=== PATIENT | female | born 1955 | race Caucasian/White ===

== ENCOUNTER → 2023-09-20 08:30 | Outpatient (REF) | payer MEDICARE, OTHER, SELFPAY | LOC: HWWDC 08:30 | PROVIDERS: ATTENDING PHYSICIAN Internal Medicine; FAMILY PHYSICIAN Obstetrics & Gynecology; REFERRING PHYSICIAN Surgery | DX: Z12.31 Encounter for screening mammogram for malignant neoplasm of breast (principal) | CPT/HCPCS: 77063; 77067 ==

== ENCOUNTER → 2023-10-27 06:38 | Day surgery (SDC) | payer MEDICARE, OTHER, SELFPAY | LOC: GI 06:38 | PROVIDERS: ATTENDING PHYSICIAN Internal Medicine | DX: Z12.11 Encounter for screening for malignant neoplasm of colon (principal); K64.8 Other hemorrhoids; K57.30 Diverticulosis of large intestine without perforation or abscess without bleeding; K64.4 Residual hemorrhoidal skin tags; D12.2 Benign neoplasm of ascending colon | CPT/HCPCS: 45385; 45380; 88305 ==

== ENCOUNTER → 2024-04-03 07:29 | Outpatient (REF) | payer MEDICARE, OTHER, SELFPAY ==
[2024-04-03 09:15] LABS: ALT (SGPT) 20 U/L (0-35); AST (SGOT) 25 U/L (14-36); Albumin 4.1 g/dl (3.5-5.0); Alkaline Phosphatase 67 U/L (38-126); Blood Urea Nitrogen 23 mg/dl (7-17); Calcium 9.9 mg/dl (8.4-10.2); Carbon Dioxide 28 mmol/L (22-30); Chloride 107 mmol/L (98-107); Creatine Phosphokinase 102 U/L (30-135); Glucose 89 mg/dl (70-99); HDL Cholesterol 64 mg/dl; LDL Cholesterol, Calculated 173 mg/dl; Sodium 139 mmol/L (135-145); Total Bilirubin 0.6 mg/dl (0.2-1.3); Total Cholesterol 260 mg/dl (50-199); Total Protein 6.8 g/dl (6.3-8.2); Triglyceride 117 mg/dl (10-149); Very Low Density Lipoprotein 23 mg/dl (0-30); eGFR > 60.00
[2024-04-04 20:20] LABS: Lipoprotein a (Lp a) 73 mg/dL (<=29)
[2024-04-04 20:26] LABS: Apolipoprotein B 138 mg/dL (60-117)
== END ==
LOC: REG 07:29
PROVIDERS: ATTENDING PHYSICIAN Internal Medicine
DX: R93.1 Abnormal findings on diagnostic imaging of heart and coronary circulation (principal); E78.5 Hyperlipidemia, unspecified
CPT/HCPCS: 36415; 80053; 80061; 82172; 82550; 83695; 93005

== ENCOUNTER → 2024-04-09 10:01 | Outpatient (REF) | payer MEDICARE, OTHER, SELFPAY | LOC: RCS 10:01 | PROVIDERS: ATTENDING PHYSICIAN Internal Medicine | DX: R93.1 Abnormal findings on diagnostic imaging of heart and coronary circulation (principal) | CPT/HCPCS: 78452; 93017; A9500 ==

== ENCOUNTER → 2024-07-23 07:27 | Outpatient (REF) | payer MEDICARE, OTHER, SELFPAY ==
[2024-07-23 08:34] LABS: ALT (SGPT) 31 U/L (0-35); AST (SGOT) 30 U/L (14-36); Albumin 4.2 g/dl (3.5-5.0); Alkaline Phosphatase 66 U/L (38-126); Blood Urea Nitrogen 22 mg/dl (7-17); Calcium 9.7 mg/dl (8.4-10.2); Carbon Dioxide 32 mmol/L (22-30); Chloride 104 mmol/L (98-107); Creatine Phosphokinase 124 U/L (30-135); Glucose 89 mg/dl (70-99); HDL Cholesterol 74 mg/dl; LDL Cholesterol, Calculated 86 mg/dl; Potassium 4.3 mmol/L (3.5-5.1); Sodium 142 mmol/L (135-145); Total Bilirubin 0.5 mg/dl (0.2-1.3); Total Cholesterol 180 mg/dl (50-199); Total Protein 6.9 g/dl (6.3-8.2); Triglyceride 101 mg/dl (10-149); Very Low Density Lipoprotein 20 mg/dl (0-30); eGFR > 60.00
== END ==
LOC: REG 07:27
PROVIDERS: ATTENDING PHYSICIAN Internal Medicine
DX: E78.2 Mixed hyperlipidemia (principal)
CPT/HCPCS: 36415; 80053; 80061; 82550

== ENCOUNTER → 2024-09-25 08:03 | Outpatient (REF) | payer MEDICARE, OTHER, SELFPAY ==
[2024-09-25 09:41] LABS: ALT (SGPT) 45 U/L (0-35); AST (SGOT) 35 U/L (14-36); Albumin 4.5 g/dl (3.5-5.0); Alkaline Phosphatase 84 U/L (38-126); Blood Urea Nitrogen 22 mg/dl (7-17); Carbon Dioxide 29 mmol/L (22-30); Chloride 103 mmol/L (98-107); Glucose 94 mg/dl (70-99); Potassium 4.8 mmol/L (3.5-5.1); Sodium 141 mmol/L (135-145); Total Bilirubin 0.8 mg/dl (0.2-1.3); eGFR > 60.00
== END ==
LOC: REG 08:03
PROVIDERS: ATTENDING PHYSICIAN Internal Medicine Rheumatology; FAMILY PHYSICIAN Internal Medicine
DX: M81.0 Age-related osteoporosis without current pathological fracture (principal)
CPT/HCPCS: 36415; 80053

== ENCOUNTER → 2024-10-17 07:33 | Outpatient (REF) | payer MEDICARE, OTHER, SELFPAY | LOC: HWWDC 07:33 | PROVIDERS: ATTENDING PHYSICIAN Obstetrics & Gynecology; FAMILY PHYSICIAN Internal Medicine | DX: Z12.31 Encounter for screening mammogram for malignant neoplasm of breast (principal); N83.202 Unspecified ovarian cyst, left side | CPT/HCPCS: 76830; 76856; 77063; 77067 ==

== ENCOUNTER → 2024-10-22 07:31 | Outpatient (REF) | payer MEDICARE, OTHER, SELFPAY | LOC: HWRAD 07:31 | PROVIDERS: ATTENDING PHYSICIAN Internal Medicine Rheumatology; FAMILY PHYSICIAN Internal Medicine | DX: M81.0 Age-related osteoporosis without current pathological fracture (principal) | CPT/HCPCS: 77080 ==

== ENCOUNTER → 2025-02-18 07:10 | Outpatient (REF) | payer MEDICARE, OTHER, SELFPAY ==
[2025-02-18 10:00] LABS: ALT (SGPT) 36 U/L (0-35); AST (SGOT) 29 U/L (14-36); HDL Cholesterol 66 mg/dl; LDL Cholesterol, Calculated 87 mg/dl; Total Cholesterol 169 mg/dl (50-199); Triglyceride 83 mg/dl (10-149); Very Low Density Lipoprotein 16 mg/dl (0-30)
== END ==
LOC: REG 07:10
PROVIDERS: ATTENDING PHYSICIAN Internal Medicine Cardiovascular Disease; FAMILY PHYSICIAN Internal Medicine
DX: R93.1 Abnormal findings on diagnostic imaging of heart and coronary circulation (principal); E78.2 Mixed hyperlipidemia
CPT/HCPCS: 80061; 84450; 84460

== ENCOUNTER 2025-08-11 23:33 | Emergency (ER) | payer MEDICARE, OTHER, SELFPAY ==
[2025-08-11 23:34] VITALS: BP 148/72
--- NOTE | 2025-08-12 03:08 | ED.GENMED ---
History of Present Illness
<Umair Morris, DO - Last Filed: 08/12/25 03:12>
General
Chief Complaint: Musculo-Skeletal Complaint
Source: patient and spouse
Exam Limitations: none
Nursing documentation reviewed up to this point in time: agreed with
History of Present Illness
History of Present Illness:
Note:
CHIEF COMPLAINT(S)
Pain after a fall.
HISTORY OF PRESENT ILLNESS
The patient is a 70-year-old female who reports experiencing pain following a fall yesterday. He was descending steps at a [facility] presentation when she slipped on an icy section that had a railing only at the top and bottom of the
staircase. The fall occurred as she was coming down the steps. She did not specify exactly where the pain is located or any additional symptoms experienced since the fall.
Disposition:
SUMMARY OF ENCOUNTER
The patient is a 70-year-old female presenting to the emergency department after a fall resulting from slipping on ice, which occurred 24 hours prior. She reports pain in her right rib area, particularly exacerbated by inspiration and movement, with
minimal pain at rest. The patient denied any fever, chills, nausea, or vomiting. Ibuprofen is an option for her pain management, and plans for discharge with an incentive spirometer were discussed.
DIAGNOSIS
Rib contusion due to fall (ICD-10: S22.41XA)
PATIENT EDUCATION AND COUNSELING
The patient was educated on the use of an incentive spirometer to aid in breathing exercises and prevent complications like pneumonia. She was advised to use ibuprofen as needed for pain management, paying attention to directions regarding dosages.
The importance of monitoring for any new or worsening symptoms was emphasized, including fever, increased pain, or difficulty breathing, which would necessitate medical attention.
FOLLOW-UP INSTRUCTIONS
The patient was advised to follow up with her primary care physician for reassessment and further management. Additionally, she was instructed to schedule an appointment if symptoms persist or worsen.
MEDICATION RECONCILIATION
Ibuprofen for pain management as required.
MEDICAL DECISION MAKING
- Number and Complexity of Problems Addressed: Acute presentation involving rib contusion post-fall, with associated pain management needs.
- Data
Category 1: Radiology or imaging not mentioned explicitly, assumed to be clinically unnecessary due to clear physical examination findings and patient symptom presentation.
Category 2: Input primarily obtained from the patients report.
- Risk: Prescription drug management for pain considered, with ibuprofen as a non-prescription option. Consideration of further imaging or interventions deferred given stable initial assessment findings and symptomatology. Potential risk addressed
through follow-up and at-home management strategies.
Phy Exam
<Umair Morris DO - Last Filed: 08/12/25 03:12>
General Physical Exam
General Presentation: well appearing and no apparent distress
General Skin: warm and dry
General Habitus: normal
General Mental: alert
General Hydration: appears well hydrated
ENT Exam
ENT Exam: EOMI, pharynx normal, neck supple and normocephalic
Eye Exam
Eye Exam: PERRL, cornea clear and conjunctiva normal
Cardiovascular Exam
Cardiovascular Exam: regular rate/rhythm, no edema, no murmur and normal peripheral pulses
Pulmonary Exam
Pulmonary Exam: lungs clear, no respiratory distress, no rales, no crackles, no rhonchi, no stridor, no wheezing, no cough and other (Tenderness to palpation on the right rib 4 or 5)
Gastrointestinal Exam
Gastrointestinal Exam: normal bowel sounds, non tender, soft, no organomegaly, no pulsatile mass and non distended
Neurological Exam
Neurological Exam: alert, oriented x3, no motor deficits and speech normal
Musculoskeletal Exam
Musculoskeletal Exam: full ROM and no edema
Skin Exam
Skin Exam: normal color, warm/dry, no rash and no petechia
Psychiatric Exam
Psychiatric Exam: normal mood/affect
Course
<DO Radha Sweeney Filed: 08/12/25 03:12>
Orders/Labs/Results
Orders:
Orders
08/11/25 23:38
Ribs, Right 3 View W/PA Chest [CR Ribs-right 3 Vw W/pa Chest*] Urgent
Comment:
Reason For Exam: FALL ON ICE, HIT RIGHT RIBS.
08/12/25 03:03
Incentive Spirometry [Rx Incentive Spirometry] [RESP] Urgent
Frequency: q1h while awake
08/12/25 03:12
Ibuprofen [Motrin] 600 mg PO NOW STA
Vital Signs
Initial and Last Documented VS:
Initial Vital Signs
Temp Pulse Resp BP Pulse Ox
97.9 F 94 24 148/72 94
08/11/25 23:34 08/11/25 23:34 08/11/25 23:34 08/11/25 23:34 08/11/25 23:34
Last Documented Vital Signs
Temp Pulse Resp BP Pulse Ox
97.9 F 82 18 137/67 97
08/11/25 23:34 08/12/25 03:13 08/12/25 03:13 08/12/25 03:13 08/12/25 03:13
<Lm Rosales, DO - Last Filed: 08/12/25 09:30>
Orders/Labs/Results
Orders:
Orders
08/11/25 23:38
Ribs, Right 3 View W/PA Chest [CR Ribs-right 3 Vw W/pa Chest*] Urgent
Comment:
Reason For Exam: FALL ON ICE, HIT RIGHT RIBS.
08/12/25 03:03
Incentive Spirometry [Rx Incentive Spirometry] [RESP] Urgent
Frequency: q1h while awake
08/12/25 03:12
Ibuprofen [Motrin] 600 mg PO NOW STA
Vital Signs
Initial and Last Documented VS:
Initial Vital Signs
Temp Pulse Resp BP Pulse Ox
97.9 F 94 24 148/72 94
08/11/25 23:34 08/11/25 23:34 08/11/25 23:34 08/11/25 23:34 08/11/25 23:34
Last Documented Vital Signs
Temp Pulse Resp BP Pulse Ox
97.9 F 82 18 137/67 97
08/11/25 23:34 08/12/25 03:13 08/12/25 03:13 08/12/25 03:13 08/12/25 03:13
<Umair Morris, DO - Last Filed: 08/12/25 03:12>
*Radiology
Radiology exam reviewed: preliminary read by ED provider (Rib 4 midline fracture slightly displaced)
*Pulse Oximetry
SaO2: 94
Oxygen Mode of Delivery: Room air
Patient hypoxic: no
*Critical Care Note
Total Time (30-74mins, 75-104mins- exclusive of procedures): Not Applicable
<Lm Rosales, DO - Last Filed: 08/12/25 09:30>
Update Note
Update Note:
Call received from radiology. Small 10-15% apical pneumothorax seen on right. I called and spoke to the patient, who stated she was feeling well and notified her that she needs to come to the emergency department for reevaluation and possible
admission.
ED Attending Note
<Umair Morris, DO - Last Filed: 08/12/25 03:12>
-
Portions of this chart may have been created with voice recognition software.� Occasional wrong word or��sound alike� substitutions may have occurred due to the inherent limitations of voice recognition software.
Discharge Plan
Departure
Patient Disposition: Home (Routine Discharge)
Date of Disposition: 08/12/25
Time of Disposition: 03:10
Patient with high blood pressure during this ER visit?: Yes
Condition: Good
Discharge Problem:
Fracture, rib, Pneumothorax on right
Instructions: How to use an incentive spirometer, Rib fracture or bruised rib - ED (DC), BLOOD PRESSURE
Prescriptions:
New
diclofenac sodium 75 mg tablet,delayed release (/EC)
75 mg PO BID Qty: 10 0RF
Referrals:
Rodríguez Chavez DO [Family Provider, Internal Medicine]
Activity Restrictions/Additional Instructions:
[Your prescriptions were sent electronically to the pharmacy that you specified.]
Thank You for choosing [facility].
It was a pleasure meeting you and taking part in your care. We hope for your continued healing and wellness.
Please read discharge instructions in their entirety. However, they are for general education and may not describe your exact diagnosis at discharge. Information on your ER visit and medical conditions were discussed with you along with appropriate
follow up information...
If indicated, please take your medications as instructed and indicated on discharge paperwork.
Please schedule a follow up appointment as directed. Call to schedule an appointment
Please return to the emergency department with ANY change in, persisting, or worsening of symptoms. If any of your symptoms do not improve, or persist, or become more severe within 6-12 hours, please return to the emergency department for further
care.
Please return to the emergency department if you develop a headache, neck pain/stiffness, fever greater than 100.4F, chest pain, shortness of breath, persistent nausea, vomiting, slurred speech, difficulty walking, numbness/tingling, weakness, signs
of infection or any other symptoms that are worrisome to you.
If you have any questions or concerns please do not hesitate to call the Hospital at .
Interventions
Interventions:
*General Assessment Last Done: 08/12/25 03:11
*Neglect/Abuse Screening Last Done: 08/11/25 23:34
*ED COVID-19 Vaccine History Last Done: 08/12/25 03:11
*ED Influenza Vaccine History Last Done: 08/12/25 03:11
[facility] Risk Assessment Tool Last Done: 08/12/25 03:23
*Risk Screen - Suicide (C-SSRS) Last Done: 08/11/25 23:34
*Nursing Disposition Last Done: 08/12/25 03:24
ED-Musculoskeletal Assessment Last Done: 08/12/25 03:22
Discharge Date and Time
Discharge Date/Time: 08/12/25 03:24
Print Language: MARTINIQUAIS
[2025-08-12 03:13] VITALS: BP 137/67
[2025-08-12] MEDS: MOTRIN 600 MG PO (03:16)
== END 2025-08-12 03:24 | disposition home or self-care (01) ==
LOC: EMR 23:33
PROVIDERS: EMERGENCY PHYSICIAN Student in an Organized Health Care Education/Training Program; FAMILY PHYSICIAN Internal Medicine
DX: S22.41XA Multiple fractures of ribs, right side, initial encounter for closed fracture (principal); S27.0XXA Traumatic pneumothorax, initial encounter; W00.1XXA Fall from stairs and steps due to ice and snow, initial encounter; Y93.01 Activity, walking, marching and hiking; R03.0 Elevated blood-pressure reading, without diagnosis of hypertension
CPT/HCPCS: 99283; 71101

== ENCOUNTER 2025-08-12 11:47 | Emergency (ER) | payer MEDICARE, OTHER, SELFPAY ==
[2025-08-12 11:50] VITALS: BP 128/61
[2025-08-12 13:09] VITALS: BMI 22.0
[2025-08-12 13:11] VITALS: BP 123/65
[2025-08-12 13:14] VITALS: BP 123/65
[2025-08-12 14:00] VITALS: BP 121/58
--- NOTE | 2025-08-12 14:13 | ED.GENMED ---
History of Present Illness
General
Chief Complaint: Fall
Source: patient
Exam Limitations: none
Time Seen by Provider: 08/12/25 13:03
History of Present Illness
History of Present Illness:
Patient fell on steps almost 2 days ago. Came in last night with increased pain. Chest x-ray showed 3 rib fractures. Noted a small pneumothorax this morning and was called back for reevaluation. Patient states she feels stable has no unusual
shortness of breath some pain although pain is manageable. No other injury or complaint
Past History
Past History
ED Past Medical History: Hypercholesterolemia
Review of Systems
Review of Systems
All Other Systems: Not applicable
Phy Exam
Physical Exam
Physical Exam:
GENERAL: Alert and oriented in no apparent distress. Normocephalic atraumatic
EYE: Orbits normal.
NECK: Supple, nontender
CARDIAC: Regular rate and rhythm without any obvious murmurs.
LUNGS: Clear breath sounds,normal. Right lateral chest wall tenderness. No crepitus
NEUROLOGICAL: Alert and oriented , grossly non-focal
SKIN: Warm and dry
PSYCH: Normal and appropriate interaction.
Course
Orders/Labs/Results
Orders:
Orders
08/12/25 13:04
Chest Single View Frontal CR [CR Chest Single View] Urgent
Comment:
Reason For Exam: Reevaluate pneumothorax
Vital Signs
Initial and Last Documented VS:
Initial Vital Signs
Temp Pulse Resp BP Pulse Ox
97.9 F 80 19 128/61 97
08/12/25 11:50 08/12/25 11:50 08/12/25 11:50 08/12/25 11:50 08/12/25 11:50
Last Documented Vital Signs
Temp Pulse Resp BP Pulse Ox
97.9 F 83 18 121/58 97
08/12/25 11:50 08/12/25 13:14 08/12/25 13:14 08/12/25 14:00 08/12/25 14:18
MDM/Problems Addressed
Differential Diagnosis Includes:
Patient is very stable clinically. Pneumothorax unchanged on x-ray. Discussed with IR and also looped in cardiothoracic surgery although they have been unable to respond. Very reasonable for outpatient observation. Repeat chest x-ray tomorrow
morning
*Radiology
Radiology exam reviewed: preliminary read by ED provider (Unchanged pneumothorax) and radiology read reviewed (Unchanged pneumothorax)
*Pulse Oximetry
SaO2: 97
Oxygen Mode of Delivery: Room air
Patient hypoxic: no
*Critical Care Note
Total Time (30-74mins, 75-104mins- exclusive of procedures): Not Applicable
ED Attending Note
-
Portions of this chart may have been created with voice recognition software.� Occasional wrong word or��sound alike� substitutions may have occurred due to the inherent limitations of voice recognition software.
Discharge Plan
Departure
Patient Disposition: Home (Routine Discharge)
Date of Disposition: 08/12/25
Time of Disposition: 14:16
Patient with high blood pressure during this ER visit?: No
Discharge Problem:
Recent rib fractures, Small right apical pneumothorax
Instructions: Pneumothorax (collapsed lung) (DC), Rib fracture or bruised rib - ED (DC)
Prescriptions:
No Action
diclofenac sodium 75 mg tablet,delayed release (DR/EC)
75 mg PO BID Qty: 10 0RF
Referrals:
Rodríguez Chavez DO [Family Provider, Internal Medicine] - Follow up in 2-3 days
Activity Restrictions/Additional Instructions:
Return tomorrow morning for repeat x-ray either as an outpatient or through the ED.
As we discussed, return immediately with any sudden or unusual shortness of breath
Interventions
Interventions:
*General Assessment Last Done: 08/12/25 11:53
*Neglect/Abuse Screening Last Done: 08/12/25 11:53
*ED COVID-19 Vaccine History Last Done: 08/12/25 11:53
*ED Influenza Vaccine History Last Done: 08/12/25 11:53
[facility] Fall Risk Assessment Tool Last Done: 08/12/25 12:56
*Risk Screen - Suicide (C-SSRS) Last Done: 08/12/25 11:53
ED-Musculoskeletal Assessment Last Done: 08/12/25 13:02
ED- Neurological Assessment Last Done: 08/12/25 12:56
ED-Skin Assessment Last Done: 08/12/25 13:02
Discharge Date and Time
Print Language: GERMAN
== END 2025-08-12 14:30 | disposition home or self-care (01) ==
LOC: EMR 11:47
PROVIDERS: EMERGENCY PHYSICIAN Emergency Medicine; FAMILY PHYSICIAN Internal Medicine
DX: S22.41XA Multiple fractures of ribs, right side, initial encounter for closed fracture (principal); S27.0XXA Traumatic pneumothorax, initial encounter; W10.9XXA Fall (on) (from) unspecified stairs and steps, initial encounter; E78.00 Pure hypercholesterolemia, unspecified
CPT/HCPCS: 99283; 71045

== ENCOUNTER → 2025-08-13 08:36 | Outpatient (REF) | payer MEDICARE, OTHER, SELFPAY | LOC: RAD 08:36 | PROVIDERS: ATTENDING PHYSICIAN Student in an Organized Health Care Education/Training Program; FAMILY PHYSICIAN Internal Medicine | DX: J93.11 Primary spontaneous pneumothorax (principal) | CPT/HCPCS: 71046 ==